=== PATIENT | female | born 1985 | race African-American/Black ===

== ENCOUNTER → 2023-06-17 16:27 | Outpatient (REF) | payer BC, SELFPAY | LOC: RAD 16:27 | PROVIDERS: ATTENDING PHYSICIAN Nurse Practitioner Family | DX: M25.561 Pain in right knee (principal); M25.562 Pain in left knee | CPT/HCPCS: 73564 ==

== ENCOUNTER 2024-05-11 15:06 | Emergency (ER) | payer BC, SELFPAY ==
[2024-05-11 15:11] VITALS: BP 141/93
[2024-05-11 15:32] LABS: % Basophils 0.4 % (0-2); % Eosinophils 1.2 % (0-6); % Immature Granulocytes 0.2 % (0-0.5); % Lymphocytes 22.5 % (20.5-51.1); % Monocytes 11.2 % (1.7-9.3); % Neutrophils 64.5 % (42.2-75.2); Absolute Eosinophils 0.1 10^3/uL (0-0.7); Absolute Lymphocytes 2.2 10^3/uL (1.2-3.4); Absolute Monocytes 1.1 10^3/uL (0.1-0.6); Absolute Neutrophils 6.4 10^3/uL (1.4-6.5); Hematocrit 35.4 % (37.0-47.0); Hemoglobin 11.4 g/dL (12.0-16.0); Mean Corp Hgb Conc. 32.2 g/dL (33.0-37.0); Mean Corpuscular Hgb 26.8 pg (27.0-31.0); Mean Corpuscular Volume 83.1 fL (81.0-99.0); Mean Platelet Volume 10.4 fL (7.4-10.4); Nucleated Red Blood Cells % 0 %; Platelet Count 320 10^3/uL (130-400); Red Blood Cell Count 4.26 10^6/uL (4.20-5.40); Red Cell Dist. Width 19.2 % (11.5-14.5); White Blood Cell Count 9.9 10^3/uL (4.8-10.8)
[2024-05-11 15:50] LABS: ALT (SGPT) 26 U/L (0-35); AST (SGOT) 24 U/L (14-36); Albumin 4.2 g/dl (3.5-5.0); Alkaline Phosphatase 71 U/L (38-126); Blood Urea Nitrogen 13 mg/dl (7-17); Carbon Dioxide 23 mmol/L (22-30); Chloride 104 mmol/L (98-107); Glucose 93 mg/dl (70-99); Potassium 4.1 mmol/L (3.5-5.1); Sodium 137 mmol/L (135-145); Total Bilirubin 0.5 mg/dl (0.2-1.3); Total Protein 6.8 g/dl (6.3-8.2); eGFR > 60.00
--- NOTE | 2024-05-11 16:42 | ED.GENMED ---
History of Present Illness
General
Chief Complaint: Problems
Source: patient
Exam Limitations: none
Time Seen by Provider: 05/11/24 16:21
History of Present Illness
History of Present Illness:
Patient is a 38-year-old female who presents today for evaluation. Patient reports her last menstrual period March 26 she was aware that she was but had some spotting on Wednesday. She notices only when she wiped. She has an appointment
with [facility]'s health care group at to June 01 and went to [facility] where she had an ultrasound. Ultrasound report states possible gestational sac noted in the endometrium but no yolk sac. Free fluid noted in the
pelvis and complex area noted on the right ovary rule out early versus ectopic. Patient was sent here to the ER for evaluation. She also had mild lower abdominal cramping
Past History
Past History
ED Past Medical History: Other (Iron deficiency anemia)
Social History
Tobacco: Non-smoker
Alcohol: Occasional
Personal:
Living: with family
Review of Systems
Review of Systems
All Other Systems: ROS reviewed and negative except as documented in HPI and ROS
Constitutional: Reports no symptoms; Denies fever, fatigue or chills
Respiratory: Reports no symptoms
Cardiac: Reports no symptoms
ABD/GI: Reports other (mild abd cramping )
: Reports other (small amt of spotting )
Musculoskeletal: Reports no symptoms
Skin: Reports no symptoms
Neurological: Reports no symptoms
Psychiatric: Reports no symptoms
Phy Exam
General Physical Exam
General Presentation: no apparent distress
General age: appears stated age
General Skin: warm and dry
General Habitus: normal
General Mental: alert
General Hydration: appears well hydrated
Gastrointestinal Exam
Gastrointestinal Exam: non tender and soft
Neurological Exam
Neurological Exam: alert and oriented x3
Musculoskeletal Exam
Musculoskeletal Exam: full ROM
Skin Exam
Skin Exam: normal color and warm/dry
Psychiatric Exam
Psychiatric Exam: normal mood/affect
Course
Orders/Labs/Results
Orders:
Orders
05/11/24 15:09
Test Result ONCE
05/11/24 15:23
Type+Screen Urgent
Complete Blood Count/With Diff Urgent
Comprehensive Metabolic Panel Urgent
HCG,SERUM [Beta HCG Quantitative] Urgent
Is this a screen?: No
05/11/24 16:43
US W Transvaginal Urgent
Reason For Exam: cramping/spotting LMP 03/26 beta 1467
Abnormal Lab Results
05/11/24
15:23
Hgb 11.4 L g/dL
(12.0-16.0)
Hct 35.4 L %
(37.0-47.0)
MCH 26.8 L pg
(27.0-31.0)
MCHC 32.2 L g/dL
(33.0-37.0)
RDW 19.2 H %
(11.5-14.5)
Absolute Monos (auto) 1.1 H 10^3/uL
(0.1-0.6)
Monocytes % 11.2 H %
(1.7-9.3)
05/11/24 15:23
05/11/24 15:23
Vital Signs
Initial and Last Documented VS:
Initial Vital Signs
Temp Pulse Resp BP Pulse Ox
98.8 F 88 17 141/93 99
05/11/24 15:11 05/11/24 15:11 05/11/24 15:11 05/11/24 15:11 05/11/24 15:11
Last Documented Vital Signs
Temp Pulse Resp BP Pulse Ox
98.8 F 88 17 141/93 99
05/11/24 15:11 05/11/24 15:11 05/11/24 15:11 05/11/24 15:11 05/11/24 15:11
Information
Weeks gestation: N/A
Location: N/A
MDM/Problems Addressed
MDM/Problems Addressed:
Patient is a 38-year-old female who presented to the ER for evaluation. She has an appointment with [facility] but not in May and therefore went to a local clinic had an ultrasound and was sent here for evaluation. She has had
some mild spotting mild cramping. She presents awake alert no acute distress. Beta-hCG is 1467 patient reports she is no longer spotting this occurred only when she wiped. She complains of minimal abdominal cramping abdomen soft nontender.
Ultrasound shows small ovoid focus of fluid signal intensity within the endometrial canal suggesting a small gestational sac findings most likely represent early intrauterine although an embryonic is also consideration. 2
complex cystic foci within the right ovary which carbs and hemorrhagic cyst ectopic is not excluded. OPositive.
Case reviewed with CAPSULE INSPECTOR who does recommend repeat hCG quantitative in the next 48 hours and they will follow up on lab.
patient was given a prescription for this .
discussed close outpatient follow-up. Dr. Reyes reports
*Radiology
Radiology exam reviewed: radiology read reviewed
*Pulse Oximetry
Patient hypoxic: no
*Critical Care Note
Total Time (30-74mins, 75-104mins- exclusive of procedures): Not Applicable
Patient Management
Discussion with other providers: Limehouse Worker (OBGYN DR Reyes )
ED Attending Note
-
Portions of this chart may have been created with voice recognition software.� Occasional wrong word or��sound alike� substitutions may have occurred due to the inherent limitations of voice recognition software.
Discharge Plan
Departure
Patient Disposition: Home (Routine Discharge)
Date of Disposition: 05/11/24
Time of Disposition: 18:58
Patient with high blood pressure during this ER visit?: Yes
Condition: Fair
Covid-19: Not Applicable
Discharge Problem:
Threatened miscarriage
Instructions: Threatened Miscarriage (DC)
Prescriptions:
No Action
No Current Medications
0
Referrals:
Tarsha Carreon PA-C [Family Provider] -
Estrellita Reyes MD [Active] -
Activity Restrictions/Additional Instructions:
no sexual intercourse until cleared by CAPSULE INSPECTOR no heavy lifting until cleared by AUTO ACCESSORIES INSTALLER.
Please follow-up in 48 hours for repeat blood work(hCG quantitative). Follow-up with CAPSULE INSPECTOR please give the office a call tomorrow or Wednesday. Return if any worsening of symptoms.
Interventions
Interventions:
*Risk Screen - Suicide Last Done: 05/11/24 15:13
*General Assessment Last Done: 05/11/24 15:13
*Neglect/Abuse Screening Last Done: 05/11/24 15:13
*ED COVID-19 Vaccine History Last Done: 05/11/24 15:13
*Nursing Disposition Last Done: 05/11/24 19:08
ED-Female Genitourinary Assessment Last Done: 05/11/24 16:27
Discharge Date and Time
Discharge Date/Time: 05/11/24 19:08
Print Language: KHMER
== END 2024-05-11 19:08 | disposition home or self-care (01) ==
LOC: EMR 15:06
PROVIDERS: Emergency Medicine; EMERGENCY PHYSICIAN Student in an Organized Health Care Education/Training Program; FAMILY PHYSICIAN Physician Assistant
DX: O20.0 Threatened abortion (principal); Z3A.01 Less than 8 weeks gestation of pregnancy
CPT/HCPCS: 99284; 76801; 76817; 80053; 84702; 85025; 86850; 86900; 86901

== ENCOUNTER 2024-05-15 12:01 | Emergency (ER) | payer BC, SELFPAY ==
[2024-05-15 12:08] VITALS: BP 173/90
[2024-05-15 15:01] VITALS: BMI 43.0
[2024-05-15 15:29] VITALS: BP 155/77
--- NOTE | 2024-05-15 15:43 | HP.FOC2 ---
Focused History & Physical
Chief Complaint
HPI:
Chief Complaint: 38 y/o with LMP ? 03/26/2024 presents for follow up for abnormal concerns. Pt presented to ED 05/11/24 with complaints of vaginal spotting, mild cramps. Patient's labs showed HCG 1467, U/S showed probable gestational
sac, but no yolk sac or pole. Also, 2 cm complex cyst in RIGHT adnexa. Pt was noncompliant with follow up HCG ordered for 05/13/24, instead presented this AM for this. HCG now 1733, repeat U/S now demonstrates a yolk sac, consistent with a 5
2/7 wks . RIGHT adnexa unchanged. Patient with off/on mild cramps, occasional spotting.
Blood type is O pos.
While here, blood pressure mildly elevated. Patient reports she has recently been to PCP office, sees them for routine care, no issues with blood pressure.
Was tested years ago for possible bleeding disorder, has history of anemia, received iron infusions periodically, not aware of any diagnosis.
HPI / Indication for Planned Procedure:
Relevant Past Medical History: Other (Anemia)
Relevant Social History: Tobacco Use (1-2 cigarettes daily)
Relevant Family History: Positive for (Hypertension)
Relevant Past Surgical History: Positive for (TAb/D&E)
Review of Systems
Review of Pertinent Systems: All Systems Negative
Medication
See Medication form for detailed medications: Yes
Medication List (including Herbals & OTC):
vitamin daily
Medications Reviewed: Yes
Allergies and Reactions
Patient has Allergies: No
Noted Allergies and Reactions:
Allergy/AdvReac Type Severity Reaction Status Date / Time
No Known Allergies Allergy Verified 05/15/24 12:08
Pertinent Physical Exam
All Other Systems: Negative
Abdomen: Normal
Extremities: Normal
Other: Pelvic/Bimanual: vulva/vagina-clear, no blood. No masses or tenderness
Diagnosis / Assessment
Threatened -Patient and aware today only has determined that the is demonstrated in the uterus and there is therefore no ectopic likely (discussed heterotopic ). Patient aware will need repeat ultrasound
in 10-14 days to determine whether this will continue, and that there is high likelihood of SAB given the slow rise of her HCG's. Discussed symptoms of complete miscarriage, when to call.
Possible hypertension-Patient advised of importance of normal blood pressure for healthy .
Plan / Procedure
Nothing per vagina
Continue with PNV
Stop smoking
Follow up with PCP regarding possible hypertension
Start taking blood pressure 1-2 times daily
Return to my office on 05/19/24 at 11:40AM for follow up
Time spent with patient, reviewing labs, personal review of ultrasound images with radiologist and setting up plan required 45 minutes.
== END 2024-05-15 15:44 | disposition home or self-care (01) ==
LOC: EMR 12:01
PROVIDERS: EMERGENCY PHYSICIAN Obstetrics & Gynecology; FAMILY PHYSICIAN Physician Assistant
DX: O20.0 Threatened abortion (principal); O99.331 Smoking (tobacco) complicating pregnancy, first trimester; F17.200 Nicotine dependence, unspecified, uncomplicated; O09.521 Supervision of elderly multigravida, first trimester; Z86.2 Personal history of diseases of the blood and blood-forming organs and certain disorders involving the immune mechanism; Z3A.01 Less than 8 weeks gestation of pregnancy
CPT/HCPCS: 99284; 36415; 76801; 76817; 84702

== ENCOUNTER 2024-05-23 08:13 | Emergency (ER) | payer BC, SELFPAY ==
[2024-05-23 08:19] VITALS: BP 141/96
[2024-05-23 08:42] LABS: % Basophils 0.3 % (0-2); % Eosinophils 3.3 % (0-6); % Immature Granulocytes 0.3 % (0-0.5); % Lymphocytes 17.5 % (20.5-51.1); % Monocytes 14.7 % (1.7-9.3); % Neutrophils 63.9 % (42.2-75.2); Absolute Eosinophils 0.2 10^3/uL (0-0.7); Absolute Lymphocytes 1.1 10^3/uL (1.2-3.4); Absolute Monocytes 0.9 10^3/uL (0.1-0.6); Absolute Neutrophils 4.1 10^3/uL (1.4-6.5); Hematocrit 33.9 % (37.0-47.0); Hemoglobin 11.1 g/dL (12.0-16.0); Mean Corp Hgb Conc. 32.7 g/dL (33.0-37.0); Mean Corpuscular Hgb 26.8 pg (27.0-31.0); Mean Corpuscular Volume 81.9 fL (81.0-99.0); Mean Platelet Volume 10.4 fL (7.4-10.4); Nucleated Red Blood Cells % 0 %; Platelet Count 296 10^3/uL (130-400); Red Blood Cell Count 4.14 10^6/uL (4.20-5.40); Red Cell Dist. Width 18.4 % (11.5-14.5); White Blood Cell Count 6.4 10^3/uL (4.8-10.8)
[2024-05-23 09:06] LABS: ALT (SGPT) 23 U/L (0-35); AST (SGOT) 20 U/L (14-36); Albumin 3.4 g/dl (3.5-5.0); Alkaline Phosphatase 70 U/L (38-126); Blood Urea Nitrogen 5 mg/dl (7-17); Calcium 8.8 mg/dl (8.4-10.2); Carbon Dioxide 24 mmol/L (22-30); Chloride 108 mmol/L (98-107); Glucose 98 mg/dl (70-99); Potassium 4.2 mmol/L (3.5-5.1); Sodium 137 mmol/L (135-145); Total Bilirubin 0.3 mg/dl (0.2-1.3); eGFR > 60.00
[2024-05-23 09:19] VITALS: BMI 42.0
--- NOTE | 2024-05-23 09:28 | ED.GENMED ---
History of Present Illness
General
Chief Complaint: Problems
Source: patient and records
Exam Limitations: none
Time Seen by Provider: 05/23/24 09:04
History of Present Illness
History of Present Illness:
38yo female currently about 6 weeks presenting for evaluation of vaginal bleeding. Patient reports spotting starting last night. She woke up this morning with heavy vaginal bleeding and noticed some clots. She also reports some pelvic
cramping. She denies any fevers, dysuria, vomiting, dizziness, syncope. She presented to the hospital last week for spotting. Pelvic ultrasound on 05/15/24 revealed a yolk sac but no pole. There was also a 2cm complex cyst within the right
ovary which was unchanged from the ultrasound on 05/11/24. She saw OBGYN 4 days ago and plan was to have a repeat ultrasound next week. Blood type is O+.
Past History
Past History
ED Past Medical History: Other (Iron deficiency anemia)
Social History
Tobacco: Non-smoker
Alcohol: Occasional
Personal:
Living: with family
Phy Exam
General Physical Exam
General Presentation: well appearing and no apparent distress
General age: appears stated age
General Skin: warm and dry
General Habitus: normal
General Mental: alert
ENT Exam
ENT Exam: normocephalic
Cardiovascular Exam
Cardiovascular Exam: regular rate/rhythm
Pulmonary Exam
Pulmonary Exam: lungs clear, no respiratory distress, no rales, no crackles and no rhonchi
Gastrointestinal Exam
Gastrointestinal Exam: soft, non distended and other (Mild suprapubic tenderness. Abdomen soft, non-distended. No rebound or guarding. )
Neurological Exam
Neurological Exam: alert
Lisy Coma Scale
Eye Opening: Spontaneous
Verbal Response: Oriented
Motor Response: Obeys Commands
GCS Total Score: 15
Skin Exam
Skin Exam: normal color and warm/dry
Psychiatric Exam
Psychiatric Exam: normal mood/affect
Course
Orders/Labs/Results
Orders:
Orders
05/23/24 08:32
Comprehensive Metabolic Panel Urgent
05/23/24 08:33
CBC/With Diff [Complete Blood Count/With Diff] Urgent
HCG,SERUM [Beta HCG Quantitative] Urgent
Is this a screen?: No
05/23/24 09:27
w/ Transvaginal US [US W Transvaginal] Urgent
Comment:
Reason For Exam: vaginal bleeding, cramping in 1st trimester
Abnormal Lab Results
05/23/24 05/23/24
08:32 08:33
RBC 4.14 L 10^6/uL
(4.20-5.40)
Hgb 11.1 L g/dL
(12.0-16.0)
Hct 33.9 L %
(37.0-47.0)
MCH 26.8 L pg
(27.0-31.0)
MCHC 32.7 L g/dL
(33.0-37.0)
RDW 18.4 H %
(11.5-14.5)
Absolute Lymphs (auto) 1.1 L 10^3/uL
(1.2-3.4)
Absolute Monos (auto) 0.9 H 10^3/uL
(0.1-0.6)
Lymphocytes % 17.5 L %
(20.5-51.1)
Monocytes % 14.7 H %
(1.7-9.3)
Chloride 108 H mmol/L
(98-107)
BUN 5 L mg/dl
(7-17)
Total Protein 6.0 L g/dl
(6.3-8.2)
Albumin 3.4 L g/dl
(3.5-5.0)
05/23/24 08:33
05/23/24 08:32
Vital Signs
Initial and Last Documented VS:
Initial Vital Signs
Temp Pulse Resp BP Pulse Ox
98.4 F 85 16 141/96 98
05/23/24 08:19 05/23/24 08:19 05/23/24 08:19 05/23/24 08:19 05/23/24 08:19
Last Documented Vital Signs
Temp Pulse Resp BP Pulse Ox
98.1 F 85 18 149/90 98
05/23/24 11:09 05/23/24 11:09 05/23/24 11:09 05/23/24 11:09 05/23/24 11:09
Information
Weeks gestation: Weeks: (5)
Location: Location: (intrauterine)
MDM/Problems Addressed
Differential Diagnosis Includes:
38yoF here with vaginal bleeding and pelvic cramping. Currently 6 weeks . Had an ultrasound last week which showed a yolk sac without pole and a R adnexal cyst. No dizziness/syncope. She is mildly hypertensive with otherwise normal
vitals. Differential diagnosis includes but is not limited to: threatened , miscarriage, ectopic
Initial ED plan: Labs obtained in triage. Hemoglobin 11.1 which is stable from last week. Quantitative HCG pending. Will check pelvic ultrasound.
*Critical Care Note
Total Time (30-74mins, 75-104mins- exclusive of procedures): Not Applicable
Update Note
Update Note:
Quantitative hCG is 1581 which is decreased from 1733 last week. Ultrasound shows early intrauterine . pole is visualized today. heart rate is 89 which is borderline. No adnexal abnormalities noted. Patient is stable for
discharge. She was advised to follow-up with her [employer] CLEANER [employer] team for serial HCGs/ultrasounds. Strict ED return precautions discussed. Patient expressed understanding and was discharged in stable condition.
ED Attending Note
-
Portions of this chart may have been created with voice recognition software.� Occasional wrong word or��sound alike� substitutions may have occurred due to the inherent limitations of voice recognition software.
Discharge Plan
Departure
Patient Disposition: Home (Routine Discharge)
Date of Disposition: 05/23/24
Time of Disposition: 10:57
Patient with high blood pressure during this ER visit?: Yes
Discharge Problem:
Threatened miscarriage in early
Instructions: Threatened Miscarriage (DC)
Prescriptions:
No Action
No Current Medications
0
Referrals:
Tarsha Carreon PA-C [Family Provider] -
Activity Restrictions/Additional Instructions:
Please call your OBGYN today for follow-up instructions. You will need repeat blood work and a repeat ultrasound for close monitoring.
Return to the ER with any worsening symptoms, dizziness, passing out, or if you bleed through >2 pads/hour for >2 hours.
Interventions
Interventions:
*Risk Screen - Suicide Last Done: 05/23/24 08:21
*General Assessment Last Done: 05/23/24 08:19
*Neglect/Abuse Screening Last Done: 05/23/24 08:21
*ED COVID-19 Vaccine History Last Done: 05/23/24 09:19
*Nursing Disposition Last Done: 05/23/24 11:12
ED-Female Genitourinary Assessment Last Done: 05/23/24 09:19
Discharge Date and Time
Discharge Date/Time: 05/23/24 11:16
Print Language: MALAY
[2024-05-23 11:09] VITALS: BP 149/90
== END 2024-05-23 11:16 | disposition home or self-care (01) ==
LOC: EMR 08:13
PROVIDERS: Emergency Medicine; EMERGENCY PHYSICIAN Emergency Medicine; FAMILY PHYSICIAN Physician Assistant
DX: O20.0 Threatened abortion (principal); Z3A.01 Less than 8 weeks gestation of pregnancy; O26.891 Other specified pregnancy related conditions, first trimester; N83.201 Unspecified ovarian cyst, right side; D50.9 Iron deficiency anemia, unspecified; R03.0 Elevated blood-pressure reading, without diagnosis of hypertension
CPT/HCPCS: 99284; 76801; 76817; 80053; 84702; 85025

== ENCOUNTER 2024-05-24 09:37 | Emergency (ER) | payer BC, SELFPAY ==
[2024-05-24 09:38] VITALS: BP 172/110
[2024-05-24] MEDS: TYLENOL 1000 MG PO (10:19)
[2024-05-24 10:29] LABS: % Basophils 0.3 % (0-2); % Eosinophils 0.5 % (0-6); % Immature Granulocytes 0.5 % (0-0.5); % Lymphocytes 13.6 % (20.5-51.1); % Neutrophils 67.1 % (42.2-75.2); Absolute Lymphocytes 1.2 10^3/uL (1.2-3.4); Absolute Monocytes 1.6 10^3/uL (0.1-0.6); Absolute Neutrophils 5.9 10^3/uL (1.4-6.5); Hematocrit 34.4 % (37.0-47.0); Hemoglobin 11.3 g/dL (12.0-16.0); Mean Corp Hgb Conc. 32.8 g/dL (33.0-37.0); Mean Corpuscular Hgb 27.2 pg (27.0-31.0); Mean Corpuscular Volume 82.9 fL (81.0-99.0); Mean Platelet Volume 10.1 fL (7.4-10.4); Nucleated Red Blood Cells % 0 %; Platelet Count 260 10^3/uL (130-400); Red Blood Cell Count 4.15 10^6/uL (4.20-5.40); Red Cell Dist. Width 18.6 % (11.5-14.5); White Blood Cell Count 8.8 10^3/uL (4.8-10.8)
[2024-05-24 10:44] LABS: ALT (SGPT) 23 U/L (0-35); AST (SGOT) 20 U/L (14-36); Albumin 3.6 g/dl (3.5-5.0); Alkaline Phosphatase 75 U/L (38-126); Blood Urea Nitrogen 3 mg/dl (7-17); Carbon Dioxide 20 mmol/L (22-30); Chloride 108 mmol/L (98-107); Glucose 97 mg/dl (70-99); Potassium 3.9 mmol/L (3.5-5.1); Sodium 136 mmol/L (135-145); Total Bilirubin 0.3 mg/dl (0.2-1.3); Total Protein 6.4 g/dl (6.3-8.2); eGFR > 60.00
--- NOTE | 2024-05-24 10:52 | ED.GENMED ---
History of Present Illness
General
Chief Complaint: Vaginal Bleeding
Source: patient, spouse and previous radiology exam (US yesterday: GA 5w6d, FHR 89)
Exam Limitations: none
Time Seen by Provider: 05/24/24 10:17
Nursing documentation reviewed up to this point in time: agreed with
History of Present Illness
History of Present Illness:
38-year-old female presents emergency department due to vaginal bleeding ongoing for the past 2 to 3 days. Department yesterday, and had an ultrasound showing heart rate 89, EGA 5 weeks, 6 days. She saw her OB today and was sent to the
emergency department due to vaginal bleeding.
Past History
Past History
ED Past Medical History: Other (Iron deficiency anemia)
ED Past Surgical History: None
Social History
Tobacco: Non-smoker
Alcohol: Occasional
Personal:
Living: with family
Review of Systems
Review of Systems
Allergies reviewed?: Yes
All Other Systems: Not applicable
Constitutional: Reports no symptoms
EENT: Reports no symptoms
Respiratory: Reports no symptoms
Cardiac: Reports no symptoms
ABD/GI: Reports no symptoms
: Reports bleeding
Musculoskeletal: Reports no symptoms
Skin: Reports no symptoms
Neurological: Reports no symptoms
Endocrine: Reports no symptoms
Hematologic/Lymphatic: Reports no symptoms
Psychiatric: Reports no symptoms
Phy Exam
Physical Exam
Physical Exam:
Physical Exam
General: no apparent distress, not acutely ill
Neck: supple. no meningeal signs. normal posterior pharynx
Heart: s1/s2 regular rate and rhythm, no murmur. equal radial
pulses.
HEENT: Pupils equal round reactive to light, EOMI
Lungs: no acute respiratory distress. clear bilaterally
Abdomen: normal bowel sounds. not tender. no CVAT
Neuro: alert and oriented. no focal neurological deficits
Skin: no rash
Psychiatric: well kept. interactive and cooperative
Extremities: no edema. no calf tenderness. negative homans. good distal pulses
Course
Orders/Labs/Results
Orders:
Orders
05/24/24 10:18
Acetaminophen [Tylenol] 1,000 mg .ROUTE .STK-MED ONE
05/24/24 10:19
Add On- LAB Urgent
Tests Added?: HCG serum quantitative
Beta HCG Quantitative Urgent
Comment: ADD ON
Complete Blood Count/With Diff Urgent
Acetaminophen [Tylenol] 1,000 mg PO NOW STA
05/24/24 10:20
CMP [Comprehensive Metabolic Panel] Urgent
05/24/24 10:21
US W Transvaginal Urgent
Reason For Exam: vaginal bleeding, 1st trimester
Abnormal Lab Results
05/24/24 05/24/24
10:19 10:20
RBC 4.15 L 10^6/uL
(4.20-5.40)
Hgb 11.3 L g/dL
(12.0-16.0)
Hct 34.4 L %
(37.0-47.0)
MCHC 32.8 L g/dL
(33.0-37.0)
RDW 18.6 H %
(11.5-14.5)
Absolute Monos (auto) 1.6 H 10^3/uL
(0.1-0.6)
Lymphocytes % 13.6 L %
(20.5-51.1)
Monocytes % 18.0 H %
(1.7-9.3)
Chloride 108 H mmol/L
(98-107)
Carbon Dioxide 20 L mmol/L
(22-30)
BUN 3 L mg/dl
(7-17)
05/24/24 10:19
05/24/24 10:20
Vital Signs
Initial and Last Documented VS:
Initial Vital Signs
Temp Pulse Resp BP Pulse Ox
99 F 89 16 172/110 100
05/24/24 09:38 05/24/24 09:38 05/24/24 09:38 05/24/24 09:38 05/24/24 09:38
Last Documented Vital Signs
Temp Pulse Resp BP Pulse Ox
99 F 63 16 145/72 97
05/24/24 09:38 05/24/24 12:29 05/24/24 09:38 05/24/24 12:29 05/24/24 12:29
MDM/Problems Addressed
Differential Diagnosis Includes:
Retained products of conception, miscarriage
MDM/Problems Addressed:
38-year-old female with complete miscarriage. Rh+. Ultrasound shows no signs of IUP. Declining hCG level. Discharged to follow-up with Dr. Shane, patient's SORTER OPERATOR.
*Radiology
Radiology exam reviewed: radiology read reviewed (Ultrasound pelvis shows no IUP, fibroids)
*Pulse Oximetry
Patient hypoxic: no
*Critical Care Note
Total Time (30-74mins, 75-104mins- exclusive of procedures): Not Applicable
Data Reviewed
Review of Other/Old Records Reveals: Labs (Prior HCG 1581 on 05/23/2024)
Source: records
Patient Management
Social determinants of health affecting care: Living situation and Strong social support
Discussion with other providers: Accounts Receivable Coordinator (Discussed with Dr. Shane, SORTER OPERATOR)
Escalation/DeEscalation of care consider admission/obs:
Admit not indicated
ED Attending Note
-
Portions of this chart may have been created with voice recognition software.� Occasional wrong word or��sound alike� substitutions may have occurred due to the inherent limitations of voice recognition software.
Discharge Plan
Departure
Patient Disposition: Home (Routine Discharge)
Date of Disposition: 05/24/24
Time of Disposition: 12:23
Patient with high blood pressure during this ER visit?: Yes
Condition: Good
Discharge Problem:
Complete miscarriage
Instructions: Miscarriage (DC), BLOOD PRESSURE
Prescriptions:
No Action
No Current Medications
0
Referrals:
Reynaldo Shane MD [Active] - Call in 1-3 days for appt
Tarsha Carreon PA-C [Family Provider] -
Interventions
Interventions:
*Risk Screen - Suicide Last Done: 05/24/24 10:29
*General Assessment Last Done: 05/24/24 10:29
*Neglect/Abuse Screening Last Done: 05/24/24 12:33
*ED- Fall Risk Assessment Last Done: 05/24/24 12:33
*ED COVID-19 Vaccine History Last Done: 05/24/24 12:33
*Nursing Disposition Last Done: 05/24/24 12:33
ED-Female Genitourinary Assessment Last Done: 05/24/24 10:29
Discharge Date and Time
Discharge Date/Time: 05/24/24 12:40
Print Language: LAO
[2024-05-24 11:49] LABS: Beta HCG Quantitative 606.38 mIU/ml
[2024-05-24 12:29] VITALS: BP 145/72
--- NOTE | 2024-05-24 12:30 | EDRN ---
Dr. Arredondo in at bedside going over ultrasound report and plan for discharge
== END 2024-05-24 12:40 | disposition home or self-care (01) ==
LOC: EMR 09:37
PROVIDERS: EMERGENCY PHYSICIAN Emergency Medicine; FAMILY PHYSICIAN Physician Assistant
DX: O03.9 Complete or unspecified spontaneous abortion without complication (principal)
CPT/HCPCS: 99284; 76801; 76817; 80053; 84702; 85025

== ENCOUNTER → 2024-06-26 09:36 | Outpatient (REF) | payer BC, SELFPAY | LOC: WDC 09:36 | PROVIDERS: ATTENDING PHYSICIAN Obstetrics & Gynecology | DX: R92.8 Other abnormal and inconclusive findings on diagnostic imaging of breast (principal) | CPT/HCPCS: 76642 ==